=== PATIENT | female | born 1955 | race Caucasian/White ===

== ENCOUNTER 2016-09-30 08:35 | Day surgery (SDC) | payer MEDICARE, BC ==
[~2016-09-30] VITALS: Ht 162.6 cm; Wt 44.8 kg
[~2016-09-30 08:35] MED LIST: ALBU18HF2 ORAL INH; ALBU2.5V2 AEROSOL; CALC-39 PO; CITA20TA9 PO; DENO60DI SQ; HYDR-973 PO; LIDOCAINE 1% (10mg/ml) 2ml SDV INJ ONE; LR 1,000 ML IV SCH; METH5TAB6 PO; MULT-933 PO; OMEP20CA10 PO; SIMV20TA6 PO
[2016-09-30 08:44] VITALS: BP 115/74; PULSE 95; RESP 16; TEMP 98.4; O2SAT 96; Ht 162.6 cm; Wt 44.8 kg
--- NOTE | 2016-09-30 09:37 | ANESPREOP ---
Anesthesia Record Date and Time DATE: 09/30/16 TIME: 09:35 Pre-Op Diagnosis Change in bowel habits Proposed Surgical Procedure ESOPHAGOGASTRODUODENOSCOPY AND COLONOSCOPY NPO since: Midnight Allergies: Coded Allergies: Penicillins (Verified Allergy, Unknown, 09/30/16) Ht/Wt/BMI Height: 5 ' 4.00 " Weight: 44.800 kg BMI: 17.0 kg/m2 Vital Signs Date Time Temp Pulse Resp B/P Pulse Ox O2 Delivery O2 Flow Rate FiO2 09/30/16 08:44 98.4 95 16 115/74 96 Room Air Medications Inpatient Medications Current Medications Medications (Trade) Dose Ordered Sig/Anayeli Start Time Stop Time Status Last Admin Dose Admin Lactated Ringer's (Lactated Ringers) 1,000 ml @ 30 mls/hr Q24H 09/30/16 07:00 09/30/16 09:07 30 MLS/HR Albuterol Sulfate (Albuterol Sulfate) 2.5 Mg/0.5 Ml Vial.neb, 1 VIAL AEROSOL Q6H , (Reported) Last Taken: on Unknown Date & Time Albuterol Sulfate (Ventolin HFA 90 mcg/ actuation) 18 Gm Hfa.aer.ad, 1 PUFF ORAL INH Q4H PRN for SHORTNESS OF AIR/ WHEEZING, (Reported) Last Taken: on 09/30/16 0800 Calcium Carbonate/Vitamin D3 (Calcium 600 + Vit D Tablet) 1 Each Tablet, 1 TAB PO DAILY, (Reported) Last Taken: on 09/29/16 1100 Citalopram Hydrobromide (Citalopram HBr) 20 Mg Tablet, 1 TAB PO BID, (Reported) Last Taken: on 09/30/16 0800 Denosumab (Prolia) 60 Mg/1 Ml Inj, 1 UNIT SQ Q6M, (Reported) Last Taken: on Unknown Date & Time Hydrocodone/Acetaminophen ([place] 5-325 Tablet) 5-325 Tablet, 1 TAB PO Q6H PRN for PAIN, (Reported) Last Taken: on 09/29/16 2100 Methimazole (Methimazole) 5 Mg Tablet, 0.5 TAB PO DAILY, (Reported) Last Taken: on 09/29/16 1100 Multivitamin (Multi-Day Vitamins) 1 Each Tablet , 1 TAB PO DAILY, (Reported) Last Taken: on 09/15/16 0800 Omeprazole (Omeprazole) 20 Mg Capsule.dr, 20 MG PO ACB, (Reported) Take 1 capsule, by mouth, one time a day (before breakfast). Last Taken: on 09/29/16 1100 Simvastatin (Simvastatin) 20 Mg Tablet, 20 MG PO HS, (Reported) Take 1 tablet, by mouth, 1 time a day (at BEDTIME). Last Taken: on 09/29/16 2100 Currently on Beta Sara: No Medical/Surgical History Anesthesia PMH: Reports: Arthritis (OA), Asthma (WILL BRING INHALER), COPD, Cancer (ESOPHAGEAL CANCER), Deep Vein Thrombosis, Hyperlipidemia, Renal Disease (PER H&P), Thyroid Disease (HYPER PER H&P), Denies: *Diabetes, Anesthesia Reactions (NO AIRWAY ISSUES), Blood Transfusion Reac, Glaucoma, Malignant Hyperthermia, Sleep Apnea Smoking Status: Current every day smoker # of Packs per Day: 0.5 # of Years: 40 Use Chewing Tobacco?: No Second Hand Exposure: No Substance Use Type: does not use Alcohol Intake: a few times a month HX of Last Menstrual Period: 2002 Past Surgical History Orthopedic Surgeries: Yes Abdominal Surgeries: Genitourinary Surgeries: Yes - CYSTO'S,STENTS,LITHO,PLACEMENT & REMOVAL OF PYELOSTOMY,NEPHROSTOMY TUBES Cardiac Surgeries: Endocrine Surgeries: Reproductive Surgeries: Yes - TUBAL LIGATION, HYST. Neurological Surgeries: Ear Surgeries: Nose Surgeries: Throat Surgeries: Yes - TONSILLECTOMY Other Surgeries: Yes - ESOPHAGOGASTRECTOMY,EGD'S,COLONOSCOPYS Anesthesia Adverse Reactions: FOUND none Family Hx of Anesthesia Advers: none Hx of Motion Sickness: No Pertinent Findings EKG Rhythm: Sinus Rhythm Physical Exam Respiratory: Lungs clear Cardiovascular: FOUND Regular rate, rhythm Airway Assessment Mallampati Score: II TMD: 3 Fingerbreadths Neck Extension: Fair Teeth: Upper Dentures, Lower Dentures ASA: 3 Plan Anesthesia Plan: TIVA Discussion Discussed risks/options/alternatives of anesthesia and questions answered. Patient consents. Nursing pain assessment noted. Present: Spouse Attestation Statement Prior to the delivery of any anesthetic medication, I examined the patient, developed the plan, obtained the patient's consent and discussed the risk and benefits of the procedure with the patient/guardian. ARLYN ISSA CRNA September 30, 2016 09:37
[2016-09-30] MEDS ORDERED: PROPOFOL 500mg 50 ML IV ONE (09:44)
[2016-09-30] MEDS ORDERED: LIDOCAINE VISCOUS 2% Oral Soln 15ml UD ONE (11:12)
[2016-09-30] MEDS ORDERED: EPHEDRINE SULFATE 50mg/ml INJECTION ONE (11:28)
[2016-09-30] MEDS ORDERED: PROPOFOL 200mg 20 ML IV ONE (11:39)
[2016-09-30 11:46] VITALS: BP 88/52; PULSE 88; RESP 16; TEMP 97; O2SAT 99
[2016-09-30 12:00] VITALS: BP 128/59; PULSE 91; RESP 20; O2SAT 98
[2016-09-30 12:15] VITALS: BP 123/70; PULSE 87; RESP 20; O2SAT 96
[2016-09-30 12:30] VITALS: BP 124/68; PULSE 86; RESP 18; O2SAT 98
--- NOTE | 2016-09-30 12:33 | ANESPO ---
Post-Op Note Date 09/30/16 Time: 12:33 Status Pt Participated in Evaluation: Pt participated in person Vital Signs Date Time Temp Pulse Resp B/P Pulse Ox O2 Delivery O2 Flow Rate FiO2 09/30/16 12:30 86 18 124/68 98 Room Air 09/30/16 11:46 97.0 4.00 Respiratory Function: Airway patent Cardiovascular Function: Regular pulse Telemetry Pattern: SR Mental Status: Alert/oriented Pain Level Intensity: 0 Hydration: Taking po fluids Complications during Recovery None apparent Follow-Up Instructions Instructions Per Surgeon ARLYN ISSA CRNA September 30, 2016 12:33
--- NOTE | 2016-10-01 19:54 | OPNOTEF ---
DATE OF SERVICE 09/30/2016 SURGEON Abdoul Bui MD PREOPERATIVE DIAGNOSIS Change in bowel habits, history for diarrhea, personal history for esophageal cancer. POSTOPERATIVE DIAGNOSES Change in bowel habits, history for diarrhea, personal history for esophageal cancer. Irregular GE junction, rectal polyp x 2, polyps x 4 from 20-25 cm from the anal verge, polyp x 1 at 60 cm from the anal verge. PROCEDURE Esophagogastroduodenoscopy with biopsies from distal esophagus via cold biopsy technique, colonoscopy with multiple polypectomies via cold biopsy technique within the rectal vault, 20-25 cm from the anal verge, snare polypectomy at 60 cm from the anal verge, random biopsies throughout colon via cold biopsy technique. ANESTHESIA TIVA BRIEF HISTORY/INDICATIONS Mrs. Butler is a 60-year-old female who presents today to undergo both an EGD as well as a colonoscopy. The patient has a personal history for esophageal cancer in the past. Recently she has had a component of some loose stools. As a result of the above indications it was recommended that she undergo both an EGD as well as a colonoscopy. FINDINGS Upon upper endoscopy the remaining esophagus, stomach and duodenum were found to be essentially within normal limits. There was some irregularity at the "squamocolumnar junction." Upon colonoscopy the patient was found to have several diminutive-appearing colonic polyps within the rectal vault and at 20.20-25 cm from the anal verge. These polyps were on the order about 5-6 mm in diameter and were removed via cold biopsy technique. The patient was found have a larger polyp at 60 cm from the anal verge that was on the order of about 1.5 in diameter that was removed via snare polypectomy technique. Additionally, given her history for loose stools, I did perform some random biopsies throughout the colon. There was evidence for angiodysplastic lesions, diverticula or alfredo malignancies. NARRATIVE OF PROCEDURE After informed consent was obtained the patient was brought to the endoscopy suite and placed upon the table in left lateral decubitus position. The patient subsequently underwent total intravenous anesthesia by the nurse installer molding and trim at my request. Formal time-out was then completed. Next, an Olympus gastroscope was inserted into the oral hypopharynx and subsequently into the esophagus under direct visualization. Gastroscope was advanced through the esophagus, stomach, pylorus and into the duodenum. The scope was with slowly withdrawn. First and second portions of the duodenum were within normal limits. No evidence of duodenitis or ulcerations was noted. Scope was drawn back into the antral portion of the stomach. Again, no marked mucosal abnormalities were noted. Given the fact that the patient had undergone a prior esophagectomy, a good portion of the stomach was within the thorax. There was some retained material within the remaining gastric remnant. Visualization overall was able to be accomplished. The scope was then advanced back to the mid esophageal region where the anastomosis had been performed. I did not see any evidence for recurrence of her prior malignancy. The squamocolumnar junction was irregular at this location. This likely is not abnormal given the fact that she has previously undergone esophagectomy. Nonetheless, biopsies were obtained from the new squamocolumnar junction in a circumferential fashion. The scope was slowly withdrawn and the remaining esophageal mucosa was found to be within normal limits. Next, attention was directed towards performing a colonoscopy. First, a digital rectal exam was performed. Normal sphincter tone. An Olympus colonoscope was inserted into the rectal vault. One could see two polyps that were on the order about 5-6 mm in diameter. These polyps were removed via cold biopsy technique. Scope was advanced up to about 20-25 cm from the anal verge where four additional diminutive-appearing colonic polyps were identified. These polyps were also grasped and removed in their entirety via cold biopsy technique and placed in a separate container. Scope was advanced until the cecum was ascertained. Triangulation of the ileocecal valve and appendiceal lumen was visualized. Scope was slowly withdrawn. Given her history for loose stools, I did go ahead and elect to proceed with some random biopsies from the ascending colon, transverse colon, descending colon and placed these within a single container. Additionally, as the scope was being was slowly withdrawn, a sessile polyp was located near the splenic flexure at about 60 cm from the anal verge. This polyp was on the order about 1.5 cm in diameter. Snare was able to be placed around the polyp and the polyp was transected in its entirety and suctioned against the colonoscope and withdrawn out through the anal verge. Scope was then reinserted in the anus and advanced up into the ascending colon region once again. The scope was slowly withdrawn. I did not appreciate any evidence for angiodysplastic lesions or diverticulum. No additional/synchronous polyps were identified. Scope was then withdrawn until it was brought forth back to rectal vault. J-maneuver was performed. No worrisome perianal pathology was noted. Scope was allowed to straighten and withdrawn through the anal verge. Patient tolerated the procedure without difficulty was sent back to the preop area in stable condition. Will await the biopsy results today's EGD and colonoscopy and proceed accordingly with further recommendations thereafter. [facility]
== END 2016-09-30 12:35 | disposition home or self-care (01) ==
LOC: SCU 08:35
PROVIDERS: ATTEND Surgery
DX: D12.6 Benign neoplasm of colon, unspecified (principal); K62.1 Rectal polyp; R19.4 Change in bowel habit; R19.7 Diarrhea, unspecified; K22.70 Barrett's esophagus without dysplasia; K20.8 Other esophagitis; Z85.01 Personal history of malignant neoplasm of esophagus; J44.9 Chronic obstructive pulmonary disease, unspecified; D64.9 Anemia, unspecified; R73.09 Other abnormal glucose; F32.9 Major depressive disorder, single episode, unspecified; E78.5 Hyperlipidemia, unspecified; M81.0 Age-related osteoporosis without current pathological fracture; F17.210 Nicotine dependence, cigarettes, uncomplicated; Z79.899 Other long term (current) drug therapy
CPT/HCPCS: 43239; 45380; 45385; J2704; J7120